=== PATIENT | female | born 2000 | race Caucasian/White ===

== ENCOUNTER 2018-02-08 13:46 | Emergency (ER) | payer OTHER ==
[2018-02-08 13:53] VITALS: BP 126/71
--- NOTE | 2018-02-08 14:04 | EDPHY ---
H & P Stated Complaint: pt c/o burning with urination. Time Seen by Provider: 02/08/18 13:51 HPI/ROS: HPI: This is a 17-year-old female presents Chief Complaint: Burning with urination Location: Quality: Burning with urination Duration: Since this morning Signs and Symptoms: no fever, no nausea, no vomiting, no hematemesis, no blood in stool, no abdominal bloating, no diarrhea, no back pain, + urinary symptoms, no vaginal bleeding/discharge, no indigestion, no chest pain, no shortness of breath Timing: Acute, constant Severity: Moderate Context: Patient reports that she woke up this morning with burning with urination, urinary frequency, urinary hesitancy. She reports that she felt fine yesterday. She also notes some blood in her urine. Denies any back pain/ fever/nausea/vomiting/vaginal bleeding/vaginal discharge. LMP 12/01/2027 days ago. Takes oral control pills. No recent sexual intercourse. No concern for STDs. Swam in [place] over the weekend. She took some Advil with moderate relief of urinary burning. Eating and drinking well. Modifying Factors: Advil Comment: ROS: see HPI Constitutional: No fever, no chills, no weight loss Eyes: No blurred vision Respiratory: No shortness of breath, no cough Cardiovascular: No chest pain, no palpitations Gastrointestinal: No nausea, no vomiting, no diarrhea, no hematemesis, no blood in stool Genitourinary: No dysuria, no blood in urine Extremities: No myalgias, no edema Neurologic: No weakness, no numbness Skin: No rashes, no petechiae Hematologic: No bruising, no bleeding MEDICAL/SURGICAL/SOCIAL HISTORY: Medical history: Generally healthy. Does not take any regular medications. Surgical history: Denies Social history: [employer] student. Originally from [facility]. Family history noncontributory. CONSTITUTIONAL: Extremely pleasant nontoxic-appearing teenage white female, awake and alert, no obvious distress HEENT: Atraumatic and normocephalic, PERRL, EOMI. Nares patent; no rhinorrhea; no nasal mucosal edema. Tympanic membranes clear. Oropharynx clear, no exudate and moist pink mucosa. Airway patent. No lymphadenopathy. No meningismus. Cardiovascular: Normal S1/S2, regular rate, regular rhythm, without murmur rub or gallop. PULMONARY/CHEST: Symmetrical and nontender. Clear to auscultation bilaterally. Good air movement. No accessory muscle usage. ABDOMEN: Soft, nondistended, nontender, no rebound, no guarding, no peritoneal signs, no masses or organomegaly. No CVAT. EXTREMITIES: 2/2 pulses, strength 5/5, no deformities, no clubbing, no cyanosis or edema. NEUROLOGICAL: no focal neuro deficits. GCS 15. SKIN: Warm and dry, no erythema. no rash. Good capillary refill. Source: Patient Exam Limitations: No limitations - Personal History LMP (Females 10-55): 22-28 Days Ago Current Tetanus Diphtheria and Acellular Pertussis (TDAP): Yes - Medical/Surgical History Hx Asthma: No Hx Chronic Respiratory Disease: No Hx Diabetes: No Hx Cardiac Disease: No Hx Renal Disease: No Hx Cirrhosis: No Hx Alcoholism: No Hx HIV/AIDS: No Hx Splenectomy or Spleen Trauma: No - Social History Smoking Status: Never smoked Constitutional: Initial Vital Signs Temperature (C) 36.5 C 02/08/18 13:51 Heart Rate 103 H 02/08/18 13:51 Respiratory Rate 16 02/08/18 13:51 Blood Pressure 126/71 H 02/08/18 13:51 O2 Sat (%) 98 02/08/18 13:51 O2 Delivery Mode Room Air Allergies/Adverse Reactions: No Known Allergies Allergy (Unverified 02/08/18 13:51) Home Medications: Medication Instructions Recorded Phenazopyridine HCl [Pyridium] 200 mg PO Q8 PRN 2 Days #6 tablet 02/08/18 Sulfamethox/Tmp 800/160 mg 1 tab PO BID #14 tab 02/08/18 [Bactrim Ds] Jocelyn 28 Tablet 02/08/18 Medical Decision Making ED Course/Re-evaluation: Urinalysis shows signs of infection; sent for urine culture; give prescription for Bactrim improving Vital signs stable without systemic signs. Abdomen soft and nontender. Doubt pyelonephritis, kidney stone or pelvic etiology. Doubt surgical abdomen Patient reports that she can follow up with [facility] this week. This patient was seen under the supervision of my secondary supervising physician. I evaluated care for this patient independently. Differential Diagnosis: Differential diagnosis includes but is not limited to cystitis, lower near E urinary tract infection, pyelonephritis, gonorrhea, chlamydia, bacterial vaginosis, candidiasis. - Data Points Laboratory Results: 02/08/18 02/08/18 13:58 13:55 Urine Color RED Urine Appearance MODERATELY TURBID Urine pH 6.0 (5.0-7.5) Ur Specific Springer 1.029 (1.002-1.030) Urine Protein 3+ H (NEGATIVE) Urine Ketones NEGATIVE (NEGATIVE) Urine Blood 3+ H (NEGATIVE) Urine Nitrate POSITIVE H (NEGATIVE) Urine Bilirubin NEGATIVE (NEGATIVE) Urine Urobilinogen NEGATIVE EU EU (0.2-1.0) Ur Leukocyte Esterase 3+ H (NEGATIVE) Urine RBC 50-182 /hpf H /hpf (0-3) Urine WBC 50-182 /hpf H /hpf (0-3) Ur Epithelial Cells 1+ /lpf /lpf (NONE-1+) Urine Bacteria 2+ /hpf H /hpf (NONE SEEN) Urine Mucus 4+ /lpf H /lpf (NONE-1+) Urine Glucose NEGATIVE (NEGATIVE) Urine Test NEGATIVE Departure - Departure Disposition: Home, Routine, Self-Care Clinical Impression: Lower urinary tract infection, acute Condition: Good Instructions: Urinary Tract Infection in Women (DC) Additional Instructions: Consume a minimum of 8-10 glasses of water or electrolyte fluid replacement drinks that include Gatorade, Powerade, Pedialyte. Eat a bland diet for the next 48 hours and then slowly advance as tolerated. Take Bactrim twice daily x 7 days. Take Pyridium every 8 hours as needed for dysuria for maximum of 2 days. Return to the Emergency Room if symptoms do not resolve in the next 72 hours, you spike a fever > 102 F, or experience intractable abdominal pain/nausea/ vomiting. Referrals: [facility] [Clinic] - 2-3 days, if not improved Stand Alone Forms: School Excuse Prescriptions: Phenazopyridine HCl [Pyridium] 200 mg PO Q8 PRN 2 Days #6 tablet PRN Reason: Pre Ect Sulfamethox/Tmp 800/160 mg [Bactrim Ds] 1 tab PO BID #14 tab
== END 2018-02-08 14:35 | disposition home or self-care (01) ==
DX: N39.0 Urinary tract infection, site not specified (principal); B96.20 Unspecified Escherichia coli [E. coli] as the cause of diseases classified elsewhere